=== PATIENT | female | born 1955 | race Caucasian/White ===

== ENCOUNTER → 2016-11-22 | Outpatient (CLI) | payer OTHER ==
--- NOTE | 2016-11-22 16:34 | XCELERA REPORT ---
[address] [address] Lower Extremity Venous Evaluation Name: NATHAN PLEITEZ Age: 61 yrs Gender: Female : 1955 Patient Status: Outpatient Patient Location: Study Date: 11/22/2016 02:34 PM Procedure: Color flow and duplex imaging of the veins of the right lower extremity as well as the left Common Femoral vein. Reason For Study: RLE PAIN Ordering Physician: TYRONE MCCARTHY Performed By: Blayne Diaz Right Sided Venous Evaluation Completely incidental finding of significant arterial disease. Monophasic from the common Femoral to the infrageniculate vessels. Normal vessel filling wall to wall, compression and augmentation as well as Colour flow down to the infrageniculate veins. Left Sided Venous Evaluation The left common femoral vein is fully compressible. Spontaneous and phasic flow is present in the left common femoral vein. Biphasic signal at the Dorsalis Pedis. Critical Findings Called at 1630. Interpretation Summary No duplex evidence of DVT or obstruction in the right lower extremity nor in the left Common Femoral vein. Incidental finding of very significant Peripheral vascular disease, most likely chronic. A dedicated study may be considered. : TYRONE MCCARTHY > Jorge Luis Rivera
== END ==
LOC: SP 14:16
PROVIDERS: ATTEND Physician Assistant
DX: M79.661 Pain in right lower leg (principal)
CPT/HCPCS: 93971

== ENCOUNTER → 2016-12-04 | Outpatient (CLI) | payer OTHER | LOC: RAD 08:23 | PROVIDERS: ATTEND Physician Assistant | DX: M79.661 Pain in right lower leg (principal) | CPT/HCPCS: 82565; 73720; A9576 ==

== ENCOUNTER → 2017-10-04 | Outpatient (CLI) | payer OTHER ==
--- NOTE | 2017-10-04 16:17 | XCELERA REPORT ---
[address] [address] Lower Extremity Arterial Evaluation Name: NATHAN PLEITEZ Age: 61 yrs Gender: Female : 1955 Patient Status: Outpatient Patient Location: Study Date: 10/04/2017 08:10 AM Procedure: A color flow and duplex scan of the lower extremity arteries was performed bilaterally with velocity and waveform anaylsis. 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 Monophasic with severely attenuated waveforms, from Deep Femoral artery to the infrageniculate vessels. Occlusion in the Femoral artery. Occlusion in the posterior Tibial artery. Both with monophasic, trickle flow reconstitution. 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 Ankle Brachial index is 0.48. Left Side Arterial Evaluation Increased velocity and biphasic waveforms noted in the Common Femoral artery Deep Femoral not seen. Biphasic in the Femoral to the infrageniculate vessels. Possible proximal graft, not well visualized. 20-19% stenosis at the Aorta Iliac segment. with sequential disease.. Ankle Brachial index is 1.17. Interpretation Summary Severe hemodynamically significant lesions in the right lower extremity only, on duplex imaging, at rest. Moderate hemodynamically significant lesions in the left lower extremity only, on duplex imaging, at rest. Improved flow on the left, likely due to a functioning graft. : SANDY RIVERA > Sandy Rivera
== END ==
LOC: SP 07:54
PROVIDERS: ATTEND Surgery
DX: L97.512 Non-pressure chronic ulcer of other part of right foot with fat layer exposed (principal)
CPT/HCPCS: 93925